=== PATIENT | male | born 1965 | race Caucasian/White ===

== ENCOUNTER → 2017-01-02 | Outpatient (CLI) | payer BC ==
[~2017-01-02] MED LIST: ALLERGY INJECTIONS INJ; ALPR0.5T7 PO; ALPR1TAB2 PO; ANAS1TAB44 PO; ARIP10TA2 PO; ARIP15TA2 PO; ARIP15TA9 PO; ARIP30TA PO; ASCO100083 PO; ASCO500T5 PO; ASP81TEC PO; CETI10TA17 PO; CFR250T PO; CHOL500019 PO; CHOL500044 PO; CHOL500049 PO; CYAN100053 IJ; DAPA10TA PO; DEXL60CA5 PO; DIAZ5TAB PO; DIPH50CA33 PO; EPIN0.3P3 IM; FISH1CAP15 PO; FLUC100T6 PO; FLUT1DIS26 IH; FNST5T PO; GLIM2TAB PO; HYDR-2890 PO; INSU100I10 SQ; INSU100I14 SQ; INSU100V6 SQ; LINA5TAB PO; LISI-556 PO; LVT.05T PO; MAGN100T5 PO; MAGNESIUM PO; MTF500T PO; ND-PRIM50T PO; OXYC-197 PO; PHEN118S11 PO; PRAV20TA PO; PRAV80TA2 PO; PREG75CA PO; PRIM250T PO; PRIM50TA PO; SUPER B COMPLEX SL; TIOT18CA IH; VENL75TA74 PO; VITA-189 PO; VNL75T PO; arimidex
--- NOTE | 2017-01-02 14:17 | Diagnostic Imaging Report ---
PROCEDURE: MR imaging of the brain without contrast. TECHNIQUE: Multiplanar, multisequence MR imaging of the brain was performed without contrast. INDICATION: Blurred vision and headache. FINDINGS: There is no diffusion restriction to suggest an acute infarct or other diffusion abnormality. There is no brain edema, mass or demyelinating lesion seen. No hydrocephalus. No extra-axial fluid collection is seen. The pituitary gland is normal in size. No hypothalamic or pineal region mass. The central vascular flow-voids are preserved. There is some dominant right vertebral artery. The internal auditory canals and inner ear structures appear unremarkable. Please note that there is mild motion artifact on some sequences, particularly the sagittal T1. There is mucosal thickening in the ethmoid air cells and maxillary sinuses. IMPRESSION: No significant intracranial abnormality. Mild sinus disease. Dictated by: Dictated on workstation # [id number]
== END ==
LOC: RAD 12:48
PROVIDERS: ATTEND Internal Medicine
DX: R51 Headache (principal); H53.8 Other visual disturbances
CPT/HCPCS: 70551

== ENCOUNTER 2017-04-10 09:00 | Outpatient (CLI) | payer BC ==
[~2017-04-10] VITALS: Ht 200.7 cm; Wt 124.7 kg
[2017-04-10] MEDS ORDERED: ASPI-999 PO (10:26)
[2017-04-10] MEDS ORDERED: FISH1CAP15 PO (10:26)
[2017-04-10] MEDS ORDERED: METF500T4 PO (10:26)
[2017-04-10] MEDS ORDERED: INSU100I14 SQ (10:26)
[2017-04-10] MEDS ORDERED: VNL75T PO (10:26)
[2017-04-10] MEDS ORDERED: ANAS1TAB7 PO (10:26)
[2017-04-10] MEDS ORDERED: MAGN400T39 PO (10:26)
[2017-04-10] MEDS ORDERED: PRIM250T PO (10:26)
[2017-04-10] MEDS ORDERED: PREG150C PO (10:26)
[2017-04-10] MEDS ORDERED: FINA5TAB6 PO (10:26)
[2017-04-10] MEDS ORDERED: HYDR-700 PO (10:26)
[2017-04-10] MEDS ORDERED: OXYC15TA79 PO (10:26)
[2017-04-10] MEDS ORDERED: LANS30CA43 PO (10:26)
[2017-04-10] MEDS ORDERED: ROSU20TA PO (10:26)
[2017-04-10] MEDS ORDERED: PROP40TA5 PO (10:26)
[2017-04-10] MEDS ORDERED: THYR65TA5 PO (10:26)
[2017-04-10] MEDS ORDERED: GLIM4TAB PO (10:26)
[2017-04-10] MEDS ORDERED: CYAN500L3 SL (10:26)
== END 2017-04-10 11:02 ==
LOC: PREOP 09:00
PROVIDERS: ATTEND Surgery
DX: Z01.818 Encounter for other preprocedural examination (principal); Z86.010 Personal history of colon polyps

== ENCOUNTER 2017-04-15 08:28 | Day surgery (SDC) | payer BC ==
[~2017-04-15] VITALS: Ht 200.7 cm; Wt 124.7 kg
[~2017-04-15 08:28] MED LIST changes: +ANAS1TAB7 PO; +ASPI-999 PO; +CYAN500L3 SL; +FINA5TAB6 PO; +GLIM4TAB PO; +HYDR-700 PO; +LANS30CA43 PO; +MAGN400T39 PO; +METF500T4 PO; +OXYC15TA79 PO; +PREG150C PO; +PROP40TA5 PO; +ROSU20TA PO; +THYR65TA5 PO
--- OUTSIDE RECORDS SUMMARY | 2017-04-15 08:36 | XMS REPORT | Clinical Summary ---
Author Author [facility] Organization [facility] Address Unknown Phone Unavailable Care Team Providers Care Driver Trainee Name Role Phone PCP Unavailable Source Comments Some departments are not documenting in the electronic medical record. If you do not see the information that you expected, contact Release of Information in the Health Information Management department at [phone] for further assistance in locating additional records.[facility] Allergies Active Allergy Reactions Severity Noted Date Comments Scarlet Albicans RASH, ITCHING, EDEMA 10/29/2013 Erythromycin RASH 10/27/2013 Mold UNKNOWN 10/27/2013 Morphine UNKNOWN 02/24/2014 Penicillins UNKNOWN 10/27/2013 Oxycodone-Acetaminophen ITCHING, EDEMA 10/27/2013 Shrimp UNKNOWN 10/27/2013 Sulfa (Sulfonamide UNKNOWN 10/27/2013 Antibiotics) Current Medications Prescription Sig. Disp. Refills Start End Date Status Date diphenhydrAMINE Take 50 mg by mouth every Active (BENADRYL) 50 mg capsule 6 hours as needed. pravastatin (PRAVACHOL) Take 20 mg by mouth Active 20 mg tablet daily. levothyroxine (SYNTHROID) Take 50 mcg by mouth Active 50 mcg tablet daily. aspirin EC 81 mg tablet Take 81 mg by mouth Active daily. cetirizine (ZYRTEC) 10 mg Take 10 mg by mouth Active tablet daily. ALPRAZolam (XANAX) 1 mg Take 1 mg by mouth four Active tablet times daily as needed. venlafaxine (EFFEXOR) 75 Take 75 mg by mouth Active mg tablet daily. Promethazine-Phenylephrin Take by mouth. Active e (PROMETHAZINE VC) 6.25-5 mg/5 mL syrp metFORMIN (GLUCOPHAGE) Take 500 mg by mouth Active 500 mg tablet three times daily. dexlansoprazole (+) Take 60 mg by mouth Active (DEXILANT) 60 mg capsule daily. finasteride (PROSCAR) 5 Take 5 mg by mouth daily. Active mg tablet ARIPiprazole (ABILIFY) 15 Take 15 mg by mouth Active mg tablet daily. Eckert-3 Fatty Take 1,200 mg by mouth Active Acids-Vitamin E (FISH daily. OIL) 1,000 mg cap ASCORBATE CALCIUM Take 1,000 mg by mouth Active (VITAMIN C PO) daily. FERROUS FUMARATE/VIT Take 500 mcg by mouth Active BCOMP&C (SUPER B COMPLEX daily. PO) anastrozole (ARIMIDEX) 1 Take 0.5 mg by mouth Active mg tablet every 7 days. Magnesium 250 mg tab Take by mouth. Active HYDROcodone-acetaminophen Take 1 Tab by mouth every Active (+) (LORTAB) 10-500 mg 6 hours as needed. tablet cyanocobalamin (VITAMIN Inject 1,000 mcg to Active B-12, RUBRAMIN) 1,000 area(s) as directed every mcg/mL injection 30 days. epinephrine(+) (EPIPEN) 1 Inject 0.3 mg to area(s) Active mg/mL injection pen as directed once as needed. INSULIN ASPART (NOVOLOG Inject into area(s) as Active SC) directed. cholecalciferol (vitamin Take 1 Tab by mouth every Active D3) 50,000 unit tab 7 days. insulin glargine (LANTUS Active SOLOSTAR) 100 unit/mL (3 mL) injection PEN gabapentin (NEURONTIN) 1 TID for 1 week,then 2 63 Cap 1 03/17/20 Active 100 mg capsule TID for 1 week 14 gabapentin (NEURONTIN) 1 TID for 1 wk, then 2 270 Cap 2 03/10/20 Active 300 mg capsule TID for 1 wk, then 3 TID 14 thereafter, for tremor Active Problems Problem Noted Date Essential tremor 02/24/2014 Overview: This is a life long problem with a strong family history of ET in both parents and in his sisters. He has moderately functional impairment in terms of trouble eating, drinking, writing and in employment. Benefit from primidone has been marginal, even at doses sufficient to cause sedation. L ast Assessment & Plan: Formatting of this note may be different from the original. I discussed treatment options with the patient for their essential tremor, This included the benefits and potential side effects of the use of propranolol, primidone, benzodiazepam family medications, gabapentin, topirimate, deep brain surgery (DBS). He will decrease the primidone to 1/2 tablet (125 mg) at HS for one week and then stop. He will then start propranolol 20 mg BID and contact Haylee Dawkins LPN two weeks later with a status report. He was warned about the potential side effects of bradycardia and hypotension. Encounter Medications Medications cholecalciferol (vitamin D3) 50,000 unit tab Sig: Take 1 Tab by mouth every 7 days. insulin glargine (LANTUS SOLOSTAR) 100 unit/mL (3 mL) injection PEN Sig: propranolol (INDERAL) 20 mg tablet Sig: Take 1 Tab by mouth twice daily. Dispense: 60 Tab Refill: 5 Patient Instructions Decrease your primidone to just 1/2 pill (125 mg) at bedtime for one week and stop it on March 02. On March 03 start to take the propranolol 20 mg twice a day day/ Two weeks later (around 03/17) call Haylee Dawkins LPN at [phone] with a status report and we may change the dose as indicted. This visit lasted thirty minutes. The majority of the time was spent in discussing the diagnosis, prognosis, coordination of care, treatment options, symptom management, and the natural history of their disease. Sarcoidosis ([facility]) 10/29/2013 COPD (chronic obstructive pulmonary disease) ([facility]) 10/29/2013 Active smoker 10/29/2013 Family History Medical History Relation Name Comments COPD Father Cancer Mother non-hodgkins lymphoma COPD Other Relation Name Status Comments Father Mother Other Social History Tobacco Use Types Packs/Day Years Used Date Current Every Day Smoker Cigarettes Started: 05/27/1977 Smokeless Tobacco: Never Used Comments: 10-15/day; plan to quit 11/12/13 Alcohol Use Drinks/Week oz/Week Comments No Sex Assigned at Date Recorded Not on file Last Filed Vital Signs Vital Sign Reading Time Taken Blood Pressure 131/81 02/24/2014 11:40 AM CDT Pulse 86 02/24/2014 11:40 AM CDT Temperature - - Respiratory Rate 16 10/29/2013 9:07 AM CDT Oxygen Saturation 97% 10/29/2013 9:07 AM CDT Inhaled Oxygen - - Concentration Weight 120.2 kg (265 lb) 02/24/2014 11:40 AM CDT Height 198.1 cm (6' 6") 02/24/2014 11:40 AM CDT Body Mass Index 30.62 02/24/2014 11:40 AM CDT Plan of Treatment Health Maintenance Due Date Last Done Comments PHYSICAL (COMPREHENSIVE) 1970 EXAM PERTUSSIS VACCINE 1974 TETANUS VACCINE 1980 COLORECTAL CANCER 2013 SCREENING INFLUENZA VACCINE 12/25/2016 HEPATITIS C SCREENING Completed 10/29/2013 Results Not on filefrom Last 3 Months
--- OUTSIDE RECORDS SUMMARY | 2017-04-15 08:36 | XMS REPORT | CCD ---
Author Author [facility] Unknown Address [address] [place] [address] Care Team Providers Care Kitchen Bath Designer Name Role Phone SNOW JAVIER MD Attphys SNOW JAVIER MD Prisurg Allergies Allergy Code Allergy Type Reaction Status PERCOCET 55804 Drug allergy Active SULFA (sulfonamide) 0 Drug allergy Active IODINE 5933 Drug allergy Active MORPHINE 7052 Drug allergy Active PENICILLIN 28922 Drug allergy Active ERYTHROMYCIN/SULFISOXAZOLE 247666 Drug allergy Active Active Medications Medication Code Dose Units Frequency Route Modification Start Date/Time Albuterol 0.09MG/Actuation Inhalation Aerosol Powder 134427 1 EACH NEEDED INHALATION 11/16/2013 13:03 Prescription Detail 1 EACH INHALATION NEEDED Anastrozole 1MG Oral Tablet 845636 1 MILLIGRAMS WEEKLY ORAL 11/16/2013 13:03 Prescription Detail 1 MILLIGRAMS ORAL WEEKLY Medrol 4MG Oral Tablet 516333 4 MILLIGRAMS NEEDED ORAL 11/16/2013 13:03 Prescription Detail 4 MILLIGRAMS ORAL NEEDED Metformin 500MG Oral Tablet 221531 500 MILLIGRAMS THREE TIMES A DAY ORAL 11/16/2013 13:03 Prescription Detail 500 MILLIGRAMS ORAL THREE TIMES A DAY Pravastatin 20MG Oral Tablet 797116 20 MILLIGRAMS AT BEDTIME ORAL 11/16/2013 13:03 Prescription Detail 20 MILLIGRAMS ORAL AT BEDTIME Vitamin C 1000MG Oral Tablet 926509 1404 MILLIGRAMS DAILY ORAL 11/16/2013 13:03 Prescription Detail 1000 MILLIGRAMS ORAL DAILY Zyrtec 10MG Oral Tablet 2549197 10 MILLIGRAMS NEEDED ORAL 11/16/2013 13:03 Prescription Detail 10 MILLIGRAMS ORAL NEEDED ALLERGY SHOTS 0 1 TABLET EVERY 48 HOURS BY MOUTH 11/16/2013 13:02 Prescription Detail 1 TABLET BY MOUTH EVERY 48 HOURS DiphenhydrAMINE 50MG Oral Capsule 4898915 50 MILLIGRAMS NEEDED ORAL 11/16/2013 13:02 Prescription Detail 50 MILLIGRAMS ORAL NEEDED Epi-Pen 1MG/ML Multiple Routes Kit 6810647 1 EACH NEEDED MULTIPLE ROUTES 11/16/2013 13:02 Prescription Detail 1 EACH MULTIPLE ROUTES NEEDED Lantus 100U/ML Subcutaneous Solution 380566 39 UNIT AT BEDTIME SUBCUTANEOUS 11/16/2013 13:02 Prescription Detail 39 UNIT SUBCUTANEOUS AT BEDTIME Novolog 100U/ML Subcutaneous Solution 895301 1 EACH WITH EACH MEAL SUBCUTANEOUS 11/16/2013 13:02 Prescription Detail 1 EACH SUBCUTANEOUS WITH EACH MEAL Novolog 100U/ML Subcutaneous Solution 763667 1 EACH NEEDED SUBCUTANEOUS 11/16/2013 13:02 Prescription Detail 1 EACH SUBCUTANEOUS NEEDED Testosterone Cypionate 200MG/ML Intramuscular Oil 357925 1 EACH MONTHLY INTRAMUSCULAR 11/16/2013 13:02 Prescription Detail 1 EACH INTRAMUSCULAR MONTHLY Abilify 15MG Oral Tablet 900424 15 MILLIGRAMS AT BEDTIME ORAL 05/23/2013 10:41 Prescription Detail 15 MILLIGRAMS ORAL AT BEDTIME Aspirin 81MG Oral Tablet 242606 81 MILLIGRAMS AT BEDTIME ORAL 05/23/2013 10:41 Prescription Detail 81 MILLIGRAMS ORAL AT BEDTIME Dexilant 60MG Oral Capsule, Delayed Release 756847 60 MILLIGRAMS DAILY ORAL 05/23/2013 10:41 Prescription Detail 60 MILLIGRAMS ORAL DAILY Effexor-XR 75MG Oral Capsule, Extended Release 340553 75 MILLIGRAMS DAILY ORAL 05/23/2013 10:41 Prescription Detail 75 MILLIGRAMS ORAL DAILY Fish Oil 1000MG Oral Capsule, Liquid Filled 521613 2661 MILLIGRAMS TWO TIMES A DAY ORAL 05/23/2013 10:41 Prescription Detail 1200 MILLIGRAMS ORAL TWO TIMES A DAY Hydrocodone Bitart/Acet 500MG-10MG Oral Tablet 451864 1 EACH NEEDED ORAL 05/23/2013 10:41 Prescription Detail 1 EACH ORAL NEEDED Magnesium 250MG Oral Tablet 966236 250 MILLIGRAMS AT BEDTIME ORAL 05/23/2013 10:41 Prescription Detail 250 MILLIGRAMS ORAL AT BEDTIME Mysoline 250MG Oral Tablet 952107 125 MILLIGRAMS TWO TIMES A DAY ORAL 05/23/2013 10:41 Prescription Detail 125 MILLIGRAMS ORAL TWO TIMES A DAY Nature's Blend Vitamin D3 5000IU Oral Tablet 154698 6789 INTERNATIONAL UNITS AT BEDTIME ORAL 05/23/2013 10: 41 Prescription Detail 5000 INTERNATIONAL UNITS ORAL AT BEDTIME Prometh/Codeine 10MG/5ML-6.25MG/5ML Oral Syrup 889041 1 EACH NEEDED ORAL 05/23/2013 10:41 Prescription Detail 1 EACH ORAL NEEDED Proscar 5MG Oral Tablet 997411 5 MILLIGRAMS AT BEDTIME ORAL 05/23/2013 10:41 Prescription Detail 5 MILLIGRAMS ORAL AT BEDTIME Spiriva 18MCG Inhalation Capsule 946594 18 MCG DAILY INHALATION 05/23/2013 10:41 Prescription Detail 18 MCG INHALATION DAILY SUPER B COMPLEX 0 2500 MILLIGRAMS AT BEDTIME SUBLINGUAL 05/23/2013 10:41 Prescription Detail 2500 MILLIGRAMS SUBLINGUAL AT BEDTIME Synthroid 0.05MG Oral Tablet 577864 0.05 MILLIGRAMS DAILY ORAL 05/23/2013 10:41 Prescription Detail 0.05 MILLIGRAMS ORAL DAILY Vitamin B12 1,000MCG/1ML Intramuscular Solution 778014 1 EACH MONTHLY INTRAMUSCULAR 05/23/2013 10:41 Prescription Detail 1 EACH INTRAMUSCULAR MONTHLY Xanax 1MG Oral Tablet 398935 1 MILLIGRAMS NEEDED ORAL 05/23/2013 10:41 Prescription Detail 1 MILLIGRAMS ORAL NEEDED Problems Problem Code Start Date Resolved Date Status Recurrent ventral hernia 556569181 Active Post op pain 317880357 11/12/2013 Active Diabetes 13455594 Active Procedures Unknown or Not Available. Results Unknown or Not Available. Encounters Encounter Diagnosis Diagnosis Code Start Date Elevated blood-pressure reading, without diagnosis of hypertension R030 03/31/2016 Function Status Unknown or Not Available. History of Immunizations Immunization Code Date pneumococcal, unspecified formulation 109 02/24/2010 Influenza, seasonal, injectable 141 03/03/2012 Social History Smoking Status Code Start Date End Date Former smoker 4026043 Vital Signs Unknown or Not Available. Function Status Unknown or Not Available. Goals Unknown or Not Available. ASSESSMENTS Unknown or Not Available. Health Concerns Section Unknown or Not Available.
--- OUTSIDE RECORDS SUMMARY | 2017-04-15 08:36 | XMS REPORT ---
Author Author [facility] Medical Staff Organization [facility] Address [address] [place] [address] Phone [phone] Summary purpose TRANSITION OF CARE AUTO GENERATION Chief Complaint and Reason for Visit No authorized Reason for Visit (Admitting Diagnosis) is available for this visit. Problem list No authorized problems tracked for continuity of care are available for this visit. Encounters No authorized problems tracked for encounter diagnoses are available for this visit. Medications No medications recorded for this patient visit Allergies, adverse reactions, alerts Allergen Category Ingredient Status Reaction Severity Onset Penicillins Drug Allergy Penicillins Confirmed or Verified SULFA Drug Allergy SULFA Confirmed or Verified LEVAQUIN Drug Allergy LEVAQUIN Confirmed or Verified Hydrocodone Drug Allergy Hydrocodone Confirmed or Verified Immunizations No immunizations recorded for this patient visit Relevant diagnostic tests and/or laboratory data No authorized results are available for this patient visit History of procedures Procedure Code Code Type Description Date Performed Performing Physician 25730 CPT-4 X-RAY EXAM OF NECK SPINE 05-13-2015 RICHA MATTHEWS Functional status No functional or cognitive status observations are available for this visit. Vital signs No authorized vital signs are available for this visit. Social history No Social History or smoking status observations were recorded for this visit. ( Unknown if ever smoked.) Treatment Plan No treatment plan text is available for this visit. Hospital discharge instructions No discharge instruction text is available for this visit.
--- OUTSIDE RECORDS SUMMARY | 2017-04-15 08:37 | XMS REPORT | Continuity of Care Document ---
Demographics x Preferred Language Unknown Marital Status Unknown Episcopal Affiliation Unknown Race Unknown Ethnic Group Unknown Author Author [facility] Organization [facility] Address Unknown Phone Unavailable Allergies Active Description Code Type Severity Reaction Onset Reported/Identified Relationship to Patient Clinical Status Yes Hydrocodone 1554 Drug Allergy N/A N/A Yes LEVAQUIN Drug Allergy N/A N/A Yes Penicillins 476 Drug Allergy N/A N/A Yes SULFA Drug Allergy N/A N/A Yes morphine [id number] Drug Allergy Unknown N/A 07/18/2012 Yes Penicillins [id number] Drug Allergy Unknown N/A 07/18/2012 Yes Sulfa (Sulfonamide Antibiotics) [id number] Drug Allergy Unknown N/A 07/18/2012 Medications Problems Date Dx Coded Attending Type Code Diagnosis Diagnosed By 04/20/2014 RENEE BARAJAS PATROL OFFICER Ot 279.00 04/20/2014 RENEE BARAJAS PATROL OFFICER Ot 279.00 04/21/2014 RENEE BARAJAS PATROL OFFICER Ot 279.00 05/18/2014 RENEE BARAJAS PATROL OFFICER Ot 279.00 05/18/2014 RENEE BARAJAS PATROL OFFICER Ot 279.00 05/18/2014 RENEE BARAJAS PATROL OFFICER Ot 279.00 05/18/2014 RENEE BARAJAS PATROL OFFICER Ot 279.00 05/19/2014 RENEE BARAJAS PATROL OFFICER Ot 279.00 05/19/2014 RENEE BARAJAS PATROL OFFICER Ot 279.00 06/02/2014 RENEE BARAJAS PATROL OFFICER Ot 279.00 06/16/2014 RENEE BARAJAS PATROL OFFICER Ot 279.00 06/16/2014 RENEE BARAJAS PATROL OFFICER Ot 279.00 06/24/2014 RENEE BARAJAS PATROL OFFICER Ot 279.00 08/16/2014 RENEE BARAJAS PATROL OFFICER Ot 279.00 08/16/2014 RENEE BARAJAS PATROL OFFICER Ot V58.69 09/30/2014 RENEE BARAJAS PATROL OFFICER Ot 279.00 11/10/2014 CAROLYN JIMENEZ, KAE Marion Ot 553.21 11/10/2014 CAROLYN JIMENEZ, KAE Marion Ot 592.0 02/22/2015 RENEE BARAJAS PATROL OFFICER Ot 279.00 02/22/2015 CAROLYN JIMENEZ, KAE Marion Ot 553.21 02/22/2015 CAROLYN JIMENEZ, KAE Marion Ot 592.0 03/10/2015 RENEE BARAJAS PATROL OFFICER Ot 722.4 08/17/2015 CAROLYN JIMENEZ, KAE Marion Ot K43.2 08/30/2015 CAROLYN JIMENEZ, KAE Marion Ot K43.2 09/18/2015 CAROLYN JIMENEZ, KAE Marion Ot K43.2 INCISIONAL HERNIA WITHOUT OBSTRUCTION OR 09/18/2015 CAROLYN JIMENEZ, KAE Marion Ot Z79.899 OTHER NURSING HOME (CURRENT) DRUG THERAPY 09/19/2015 CAROLYN JIMENEZ, KAE Marion Ot K43.2 INCISIONAL HERNIA WITHOUT OBSTRUCTION OR 09/19/2015 KAE LEON MD Ot Z79.899 OTHER NURSING HOME (CURRENT) DRUG THERAPY 03/22/2016 TOAN JIMENEZ, BHASKAR Marquez Ot M48.02 SPINAL STENOSIS, CERVICAL REGION 04/04/2016 TOAN JIMENEZ, BHASKAR Marquez Ot M48.02 SPINAL STENOSIS, CERVICAL REGION 10/27/2016 TOAN JIMENEZ, BHASKAR Marquez Ot M48.02 SPINAL STENOSIS, CERVICAL REGION 01/03/2017 NICHOL BARAJAS DO Ot H53.8 OTHER VISUAL DISTURBANCES 01/03/2017 NICHOL BARAJAS DO Ot R51 HEADACHE 01/19/2017 BARAJASNICHOL SUN DO Ot H53.8 OTHER VISUAL DISTURBANCES 01/19/2017 NICHOL BARAJAS DO Ot R51 HEADACHE 04/10/2017 KAE LEON MD Ot Z01.818 ENCOUNTER FOR OTHER PREPROCEDURAL EXAMIN 04/10/2017 KAE LEON MD Ot Z86.010 PERSONAL HISTORY OF COLONIC POLYPS 04/11/2017 KAE LEON MD Ot Z01.818 ENCOUNTER FOR OTHER PREPROCEDURAL EXAMIN 04/11/2017 KAE LEON MD Ot Z86.010 PERSONAL HISTORY OF COLONIC POLYPS Procedures Results Encounters ACCT No. Visit Date/Time Discharge Status Pt. Type Provider Facility Loc./Unit Complaint [id number] 05/13/2015 09:34:00 05/13/2015 09 :34:00 DIS Outpatient RICHA MATTHEWS [facility] RAD [id number] 04/10/2017 09:00:00 2016 11:02:00 DIS Outpatient KAE LEON MD [facility] PREOP COLONOSCOPY [id number] 01/02/2017 12:48:00 2016 23:59:59 CLS Outpatient NICHOL BARAJAS DO [facility] RAD R51 [id number] 03/21/2016 12:29:00 2015 23:59:59 CLS Outpatient BHASKAR JOYA MD [facility] RAD STENOSIS [id number] 09/16/2015 09:35:00 2015 10:10:00 DIS Outpatient KAE LEON MD [facility] [id number] 09/06/2015 11:15:00 2015 11:40:00 DIS Outpatient KAE LEON MD [facility] PREOP [id number] 08/15/2015 07:42:00 2015 23:59:59 CLS Outpatient KAE LEON MD [facility] RAD [id number] 02/22/2015 15:28:00 2014 23:59:59 CLS Outpatient RENEE BARAJAS [facility] RAD [id number] 09/30/2014 12:51:00 2014 23:59:59 CLS Outpatient KAE LEON MD [facility] RAD [id number] 08/17/2014 08:00:00 2014 23:59:59 CLS Preadmit RENEE BARAJAS [facility] [id number] 06/16/2014 14:45:00 2014 00:01:00 DIS Outpatient RENEE BARAJAS [facility] [id number] 06/15/2014 15:00:00 2014 23:59:59 CLS Preadmit RENEE BARAJAS [facility] [id number] 04/20/2014 07:53:00 2013 00:01:00 DIS Outpatient RENEE BARAJAS [facility] [id number] 04/15/2017 08:45:00 PEN Preadmit CAROLYN JIMENEZ, KAE Marion [facility] POLYPS [id number] 01/18/2017 15:43:43 01/18/2017 23: 59:59 CLS Outpatient David Funes [id number] 10/18/2016 10:04:10 10/18/2016 23: 59:59 CLS Outpatient David Funes [id number] 08/16/2014 15:56:49 08/16/2014 23: 59:59 CLS Outpatient Yann Godoy [id number] 02/02/2014 11:08:22 02/02/2014 23: 59:59 CLS Outpatient Yann Godoy [id number] 12/22/2013 10:50:31 12/22/2013 23: 59:59 CLS Outpatient Yann Godoy [id number] 12/08/2013 11:36:20 12/08/2013 23: 59:59 CLS Outpatient Yann Godoy [id number] 12/01/2013 10:26:39 12/01/2013 23: 59:59 [facility] Out[facility] Yann Godoy [id number] 11/26/2013 03:56:05 11/26/2013 23: 59:59 CLS Outpatient David Funes [id number] 11/25/2013 10:38:06 11/25/2013 23: 59:59 CLS Outpatient Yann Godoy [id number] 11/23/2013 13:01:56 11/23/2013 23: 59:59 [facility] Outpatient Yann Godoy [id number] 11/23/2013 12:04:42 11/23/2013 23: 59:59 [facility] Outpatient Yann Godoy [id number] 10/27/2013 14:21:37 10/27/2013 23: 59:59 CLS Outpatient Yann Godoy [id number] 07/28/2013 16:16:28 07/28/2013 23: 59:59 [facility] Outpatient Yann Godoy
[2017-04-15] MEDS ORDERED: NS IV 500 ML 500 ML IV SCH (08:45)
[2017-04-15 09:09] VITALS: BP 128/82
[2017-04-15] MEDS ORDERED: NS IV 500 ML 500 ML ONE (09:17)
--- NOTE | 2017-04-15 09:34 | History & Physicial ---
History of Present Illness History of Present Illness Reason for visit/HPI to undergo surveillance colonoscopy. Previous history of polyps. Date of Admission Date Seen by Provider: Apr 15, 2017 Time Seen by Provider: 09:32 I consulted on this patient on 04/15/17 09:32 Attending Physician Kae Leon MD Admitting Physician Gume Marcus DO Consult Allergies and Home Medications Allergies Coded Allergies: Penicillins (Verified Allergy, 07/18/12) Sulfa(Sulfonamide Antibiotics) (Verified Allergy, 07/18/12) morphine (Verified Allergy, 07/18/12) Home Medications Anastrozole 1 Mg Tablet, 0.5 MG PO WEEK, (Reported) take 1/2 of 1mg tab on Saturdays Aripiprazole 15 Mg Tablet, 15 MG PO HS, (Reported) Aspirin 81 Mg Tab.chew, 81 MG PO HS, (Reported) Cholecalciferol (Vitamin D3) 50,000 Unit Capsule, 50,000 UNIT PO EVERY SATURDAY, (Reported) Cyanocobalamin (Vitamin B-12) 500 Mcg Tab.rapdis, 500 MCG SL HS, (Reported) Dapagliflozin Propanediol 10 Mg Tablet, 10 MG PO DAILY@1200, (Reported) Diazepam 5 Mg Tablet, 5 MG PO BID PRN for ANXIETY, (Reported) Finasteride 5 Mg Tablet, 5 MG PO HS, (Reported) Fish Oil/Dha/Epa 1 Each Capsule, 1,200 MG PO BID, (Reported) Glimepiride 4 Mg Tablet, 4 MG PO DAILY, (Reported) Hydroxyzine HCl 25 Mg Tablet, 25 MG PO QID PRN for ITCHING AND RASH, (Reported) Insulin Aspart 300 Units/3 Ml Solution, 0 SQ QID PRN for prn, (Reported) sliding scale Insulin Glargine,Hum.rec.anlog 100 Unit/1 Ml Insuln.pen, 14 UNIT SQ HS, ( Reported) Lansoprazole 30 Mg Capsule.dr, 30 MG PO BID, (Reported) Magnesium Oxide 400 Mg Tablet, 400 MG PO HS, (Reported) Metformin HCl 500 Mg Tablet, 500 MG PO TIDWM, (Reported) Oxycodone HCl 15 Mg Tablet, 15 MG PO QID PRN for PAIN-MILD TO MODERATE, ( Reported) Pregabalin 75 Mg Capsule, 75 MG PO DAILY, (Reported) Pregabalin 150 Mg Capsule, 150 MG PO HS, (Reported) Primidone 250 Mg Tablet, 250 MG PO BID, (Reported) Propranolol HCl 40 Mg Tablet, 40 MG PO BID, (Reported) Rosuvastatin Calcium 20 Mg Tablet, 20 MG PO WEEK, (Reported) take on saturday Thyroid,Pork 65 Mg Tablet, 65 MG PO DAILY, (Reported) Venlafaxine HCl 75 Mg Tab, 75 MG PO BID, (Reported) Past Aeqlgmp-Hqyopm-Phwdqr Hx Patient Social History Marrital Status: Employed/Student: retired Alcohol Use: Denies Use Recreational Drug Use: No Smoking Status: Former Smoker Former Smoker, Quit: Apr 27, 2015 Recent Foreign Travel: No Contact w/other who traveled: No Recent Hopitalizations: No Recent Infectious Disease Expo: No Immunizations Up To Date Date of Pneumonia Vaccine: Feb 24, 2013 Date of Influenza Vaccine: Feb 24, 2017 Seasonal Allergies Seasonal Allergies: Yes Respiratory Currently Using CPAP: Yes (pt's reports pt does not wear cpap machine at home) Currently Using BIPAP: No Reproductive System Hx Reproductive Disorders: No Sexually Transmitted Disease: No Gastrointestinal Diverticulosis, Polyps Musculoskeletal Arthritis, Back Injury, Chronic Back Pain Endocrine Endocrine Disorders: Diabetes, Non-Insulin dep Psychosocial Behavioral Health Disorders: Depression Constitutional: no symptoms reported EENTM: no symptoms reported Respiratory: no symptoms reported Cardiovascular: no symptoms reported Gastrointestinal: abdominal pain (LLQ) Genitourinary: no symptoms reported Musculoskeletal: back pain, joint pain Skin: no symptoms reported Psychiatric/Neurological: No Symptoms Reported Physical Exam Vital Signs Vital Sign - Last 12Hours 04/15/17 09:09 Temp 98.3 Pulse 69 Resp 16 B/P (MAP) 128/82 Pulse Ox 94 O2 Delivery Room Air Capillary Refill : General Appearance: Anxious HEENT: Normal ENT Inspection Neck: Normal Inspection Respiratory: Lungs Clear Cardiovascular: Regular Rate, Rhythm Gastrointestinal: Non Tender, Soft Rectal: Deferred Extremity: Normal Inspection Neurologic/Psychiatric: Alert, Oriented x3 Skin: Warm/Dry Assessment/Plan Assessment and Plan gentleman with a personal history of polyps. For surveillance colonoscopy. Problems: KAE LEON MD Apr 15, 2017 9:34 am
--- NOTE | 2017-04-15 09:34 | Conscious Sedation/ASA ---
Conscious Sedation Pre-Proced Time Reviewed: 09:34 ASA Class: 2 Airway Mallampati Classification: (wrangell appropriate class) I. II. III, IV Lungs Heart ASA score ASA 1: a normal healthy patient ASA 2: a patient with a mild systemic disease (mid diabetes, controlled hypertension, obesity ASA 3: a patient with a severe systemic disease that limits activity (angina , COPD, prior Myocardial infarction) ASA 4: a patient with an incapacitating disease that is a constant threat to life (CHF, renal failure) ASA 5: a moribund patient not expected to survive 24 hrs. (ruptured aneurysm) ASA 6: a declared brain patient whose organs are being harvested. For emergent operations, add the letter E after the classification Grade 2 Sedation Plan: Discussed options with patient/fam Note The patient is an appropriate candidate to undergo the planned procedure, sedation, and anesthesia. The patient immediately re-assessed prior to indication. KAE LEON MD Apr 15, 2017 9:34 am
[2017-04-15] MEDS ORDERED: MIDAZOLAM 2 MG/2 ML (VERSED) VIAL ONE ×4 (09:45)
[2017-04-15] MEDS ORDERED: fentaNYL INJECTION 100 MCG/2 ML AMP ONE (09:45)
[2017-04-15] MEDS: MIDAZOLAM 2 MG/2 ML (VERSED) VIAL IVP PRN ×3 (10:00→10:14)
[2017-04-15] MEDS: fentaNYL INJECTION 100 MCG/2 ML AMP IVP PRN ×2 (10:13→10:15)
--- NOTE | 2017-04-15 10:26 | Endo Procedure Record ---
Endo Procedure Report Date of Procedure Apr 15, 2017 Surgeon (s) KAE LEON MD Post Procedure/Op Diagnosis 1. 3mm rectal polyp 2. Sigmoid diverticulosis Procedure Performed colonoscopy to cecum Snare polypectomy 1 Description of Procedure Anesthesia Type: Conscious Sedation Specimen(s) collected/removed rectal polyp Description of the Procedure indication for procedure: This James came in for surveillance colonoscopy, having had polyps in the past. Informed consent was obtained after reviewing the procedure in detail. Description of the procedure: He was placed in left lateral decubitus position and his vital signs were monitored. Conscious sedation was achieved using Versed and fentanyl. Digital rectal examination was unremarkable. The colonoscope was then introduced into the rectum and advanced all the way up to the cecum. The scope was then withdrawn slowly and the mucosa examined in a systematic fashion. Findings: 1. 3 mm polyp at the mid-rectum, that was snared and retrieved 2.sigmoid diverticulosis. He tolerated the procedure well and was taken back to the nursing area in a stable condition. Impression: Personal history of polyps. 3 mm rectal polyp excised. Recommend repeating in 3 years. Copies To: NICHOL BARAJAS XAVIER M MD Apr 15, 2017 10:26 am
--- NOTE | 2017-04-15 10:29 | Discharge Inst-Simple/Standard ---
Discharge Inst-Standard Discharge Medications New, Converted or Re-Newed RX: Other Patient Instructions/Follow Up Plan of Care/Instructions/FU: repeat colonoscopy in 3 years Activity as Tolerated: Yes Discharge Diet: No Restrictions KEA LEON MD Apr 15, 2017 10:29 am
[2017-04-15 10:45] VITALS: BP 108/64
[2017-04-15 11:15] VITALS: BP 134/77
[2017-04-15 11:20] VITALS: BP 134/77
== END 2017-04-15 11:20 | disposition home or self-care (01) ==
LOC: ENDO 08:28
PROVIDERS: ATTEND Surgery
DX: D12.8 Benign neoplasm of rectum (principal); K57.30 Diverticulosis of large intestine without perforation or abscess without bleeding; E11.9 Type 2 diabetes mellitus without complications; Z86.010 Personal history of colon polyps; F17.210 Nicotine dependence, cigarettes, uncomplicated; Z79.4 Long term (current) use of insulin; Z79.899 Other long term (current) drug therapy
CPT/HCPCS: 82962; 88305

== ENCOUNTER → 2017-05-08 | Outpatient (CLI) | payer BC ==
[~2017-05-08] VITALS: Ht 200.7 cm; Wt 124.7 kg
[2017-05-08 12:50] VITALS: BP 114/72
[2017-05-08] MEDS: LACTATED RINGERS 1,000 ML IV SCH ×2 (13:05→14:10)
[2017-05-08 15:15] VITALS: BP 114/72
== END ==
LOC: SDC 12:44
PROVIDERS: ATTEND Nurse Practitioner Family
DX: K52.9 Noninfective gastroenteritis and colitis, unspecified (principal); E86.0 Dehydration

== ENCOUNTER 2022-06-20 06:07 | Outpatient (CLI) | payer MEDICARE ==
[~2022-06-20] VITALS: Ht 198 cm; Wt 105.7 kg
[~2022-06-20 06:07] MED LIST changes: +ARIP15TA20 PO; -ARIP15TA9 PO; -ASCO500T5 PO; +ASCO500T71 PO; +FLUC100T10 PO; -FLUC100T6 PO; -GLIM2TAB PO; +GLIM2TAB4 PO; -GLIM4TAB PO; +GLIM4TAB5 PO; -LISI-556 PO; +LISI5TAB20 PO; +METF-397 PO; -METF500T4 PO; -OXYC-197 PO; +OXYC-525 PO; -OXYC15TA79 PO; +OXYC1TAB87 PO; -ROSU20TA PO; +ROSU20TA2 PO
[2022-06-22] MEDS ORDERED: INSU100I76 SQ (13:54)
[2022-06-22] MEDS ORDERED: GABA300C PO (13:54)
[2022-06-22] MEDS ORDERED: AMLO-250 PO (13:54)
[2022-06-22] MEDS ORDERED: CELE-63 PO (13:54)
[2022-06-22] MEDS ORDERED: TIZA2CAP9 PO (13:54)
[2022-06-22] MEDS ORDERED: LIDO700A45 TP (13:54)
[2022-06-22] MEDS ORDERED: RT-ALBUINH INH (13:54)
[2022-06-22] MEDS ORDERED: DULA0.75 SQ (13:54)
[2022-06-22] MEDS ORDERED: ACHD5005 PO (13:54)
[2022-06-22] MEDS ORDERED: DEXL60CA PO (13:54)
[2022-06-22] MEDS ORDERED: GLBR5T PO (13:54)
== END 2022-06-22 14:08 | disposition home or self-care (01) ==
LOC: PREOP 06:07
PROVIDERS: ATTEND Surgery
DX: Z01.818 Encounter for other preprocedural examination (principal)

== ENCOUNTER 2022-07-03 10:07 | Day surgery (SDC) | payer BC, MEDICARE ==
[2022-07-03] VITALS (7 sets, daily range): BP systolic 76–131; BP diastolic 41–89
[~2022-07-03] VITALS: Ht 198.1 cm; Wt 105.7 kg
[~2022-07-03 10:07] MED LIST changes: +ACHD5005 PO; +AMLO-250 PO; +CELE-63 PO; +DEXL60CA PO; +DULA0.75 SQ; +GABA300C PO; +GLBR5T PO; +INSU100I76 SQ; +LIDO700A45 TP; +RT-ALBUINH INH; +TIZA2CAP9 PO
[2022-07-03] MEDS ORDERED: LACTATED RINGERS 1,000 ML IV STA (10:23)
[2022-07-03] MEDS ORDERED: HURRICAINE EXT TUBE (BENZOCAINE) XX PRN (10:30)
--- NOTE | 2022-07-03 12:02 | Progress Note-Pre Operative ---
Pre-Operative Progress Note Date of Available H&P: Jun 13, 2022 Date H&P Reviewed: Jul 03, 2022 Time H&P Reviewed: 12:01 History & Physical: H&P Reviewed, Patient Examed, No changes noted Pre-Operative Diagnosis: Screening and GERD MEGAN HRAP DO Jul 03, 2022 12:02
[2022-07-03] MEDS ORDERED: PROPOFOL INJECTION 50 ML IV ONE ×2 (12:53→13:24)
[2022-07-03] MEDS ORDERED: MIDAZOLAM 2 MG/2 ML (VERSED) VIAL ONE (12:53)
[2022-07-03] MEDS ORDERED: SUCR1TAB36 PO (13:42)
--- NOTE | 2022-07-03 13:43 | Discharge Inst-Simple/Standard ---
Discharge Inst-Standard Discharge Medications New, Converted or Re-Newed RX: Transmitted to Pharmacy Patient Instructions/Follow Up Plan of Care/Instructions/FU: 2 weeks [place] Activity as Tolerated: Yes Discharge Diet: Regular Diet MEGAN HARP DO Jul 03, 2022 13:42
--- NOTE | 2022-07-03 14:46 | Anesthesia-General Post-Op ---
MAC Patient Condition Mental Status/LOC: Same as Preop Cardiovascular: Satisfactory Nausea/Vomiting: Absent Respiratory: Satisfactory Pain: Controlled Complications: Absent Post Op Complications Complications None Follow Up Care/Instructions Patient Instructions None needed. Anesthesiology Discharge Order Discharge Order Patient is doing well, no complaints, stable vital signs, no apparent adverse anesthesia problems. No complications reported per nursing. MAURO COELLO CRNA Jul 03, 2022 14:46
--- NOTE | 2022-07-03 22:34 | OPERATIVE REPORT ---
DATE OF SERVICE: 07/03/2022 PREOPERATIVE DIAGNOSIS: GERD and screening colonoscopy. POSTOPERATIVE DIAGNOSES: Antral ulcer. Colon polyps. PROCEDURES: EGD with biopsies, colonoscopy with hot biopsy polypectomy x3. SURGEON: Megan Barahona DO. ANESTHESIA: Per CUSTOMER CARE MANAGER. ESTIMATED BLOOD LOSS: None. COMPLICATIONS: None. INDICATIONS: The patient is a 57-year-old male with GERD symptoms and needing screening colonoscopy. He understands risks and benefits of procedure and wished to proceed. Consent was signed in chart. DESCRIPTION OF PROCEDURE: The patient was taken to endoscopy suite, placed in left lateral recumbent position. Timeout was performed. Scope was inserted in the mouth, down the esophagus, stomach, into the duodenum without difficulty. No polyps, masses, ulcerations within the duodenum. Scope was retracted back into the stomach where it was further insufflated. In the antrum, ulceration present. Biopsy of this antral ulcer was obtained. Scope was retroflexed noting no other pathology. Scope was then returned to its normal position and slowly withdrawn to the distal esophagus. Biopsy of the GE junction was obtained. No polyps, masses or ulcerations. Scope was slowly retracted back until completely removed. Digital rectal exam was performed. No palpable polyps, masses or ulcerations. Scope was inserted into the rectum and advanced all the way to the cecum with minimal difficulty. Prep was adequate with lots of irrigation and suction. Scope was then slowly retracted back. No polyps, masses, or ulceration in the cecum. In the ascending colon, a small polyp was present, which hot biopsy polypectomy was performed. Scope was then continuously retracted back. One polyp in the transverse colon was present, which hot biopsy polypectomy was performed. Scope was then continuously retracted back. No polyps, masses, ulcerations in the remainder of the transverse, descending and sigmoid colon. The anastomosis was present, which had no abnormalities from previous colon resection. The rectum had a small polyp, which hot biopsy polypectomy was performed. Scope was retroflexed noting no other pathology. Scope was returned to its normal position and slowly withdrawn until completely removed. The patient tolerated the procedure well with no complications, taken to recovery room in stable condition. RECOMMENDATIONS: I would recommend repeat colonoscopy in 5 years. Any issues before that be seen at that time. The patient with antral ulcer. We will add Carafate 1 gram 4 times a day. Await biopsy results. The patient will follow up in 2 weeks. Any issues before that be seen at that time. Job ID: [id number] DocumentID: [id number] Dictated Date: 07/03/2022 13:46:03 Demo Coordinator Date: 07/03/2022 22:33:00 Dictated By: MEGAN BARAHONA DO
== END 2022-07-03 14:43 | disposition home or self-care (01) ==
LOC: ENDO 10:07
PROVIDERS: ATTEND Surgery
DX: Z12.11 Encounter for screening for malignant neoplasm of colon (principal); D12.2 Benign neoplasm of ascending colon; K62.1 Rectal polyp; K25.9 Gastric ulcer, unspecified as acute or chronic, without hemorrhage or perforation; K21.9 Gastro-esophageal reflux disease without esophagitis; K31.89 Other diseases of stomach and duodenum; E11.9 Type 2 diabetes mellitus without complications; Z79.84 Long term (current) use of oral hypoglycemic drugs; Z79.4 Long term (current) use of insulin; Z79.85 Long-term (current) use of injectable non-insulin antidiabetic drugs; Z87.891 Personal history of nicotine dependence; E66.9 Obesity, unspecified; Z87.19 Personal history of other diseases of the digestive system; Z90.49 Acquired absence of other specified parts of digestive tract; Z79.899 Other long term (current) drug therapy; Z68.26 Body mass index [BMI] 26.0-26.9, adult
CPT/HCPCS: 82947